=== PATIENT | female | born 1940 | race Caucasian/White ===

== ENCOUNTER → 2021-04-24 | Outpatient (CLI) | payer MEDICARE, OTHER ==
--- NOTE | 2021-04-24 16:18 | CT ---
EXAMINATION TYPE: CT chest wo con DATE OF EXAM: 04/24/2021 COMPARISON: None HISTORY: Pre procedural exam CT DLP: 477.30 mGycm, Automated exposure control for dose reduction was used. CONTRAST: Performed injected with 0 mL of Isovue 300. TECHNIQUE: Axial images were obtained at 5 mm thick sections. Reconstructed images are reviewed on [employer] computer in the coronal plane. FINDINGS: Limited evaluation of thyroid. No suspicious lung nodules or focal infiltrates are present. No enlarged mediastinal or hilar adenopathy is evident. The ascending aorta diameter at the level o f the main pulmonary artery is 3.3 cm. The main pulmonary artery diameter at the bifurcation is 3.0 cm. Coronary artery calcifications present. Small pericardial effusion is present. Small hiatal herni a may be present. Limited CT sections are obtained through the upper abdomen. Abdomen is essentially unremarkable. IMPRESSIONS: 1. Small pericardial effusion. 2. Small hiatal hernia
== END | disposition home or self-care (01) ==
LOC: RADCTMAIN 14:14
PROVIDERS: ATTEND Family Medicine
DX: Z01.818 Encounter for other preprocedural examination (principal); I31.3 Pericardial effusion (noninflammatory); K44.9 Diaphragmatic hernia without obstruction or gangrene
CPT/HCPCS: 71250

== ENCOUNTER 2021-06-05 21:51 | Emergency (ER) | payer MEDICARE, OTHER ==
[2021-06-05 22:45] VITALS: RESP 20
[2021-06-05] MEDS ORDERED: SODIUM CHLORIDE 0.9% 1,000 ML IV STA (22:50)
[2021-06-05] MEDS ORDERED: ACETAMINOPHEN TAB 500 MG TAB PO STA (22:50)
--- NOTE | 2021-06-05 23:09 | ED ---
General Adult HPI - General Chief complaint: Upper Respiratory Infection Stated complaint: covid+ Time Seen by Provider: 06/05/21 22:01 Source: patient, EMS, RN notes reviewed Mode of arrival: EMS Limitations: no limitations - History of Present Illness Initial comments: 81-year-old female with a past medical history of atrial fibrillation, hyperlipidemia, hypertension presents to the emergency room for COVID-19. Patient started to get sick today. She had a cough and fever. Patient lives in an assisted living facility. She tested positive at home. Patient denies shortness of breath. Denies any chest pain.Patient has no other complaints at this time including shortness of breath, chest pain, abdominal pain, nausea or vomiting, headache, or visual changes. - Related Data Home Medications Medication Instructions Recorded Confirmed Acetaminophen [Tylenol 8 Hour] 650 mg PO DAILY 06/05/21 06/05/21 Acetaminophen [Tylenol Extra 1,000 mg PO HS 06/05/21 06/05/21 Strength] Acetaminophen [Tylenol Extra 1,000 mg PO Q4-6H PRN 06/05/21 06/05/21 Strength] Aspirin EC [Ecotrin Low Dose] 81 mg PO DAILY 06/05/21 06/05/21 Atorvastatin [Lipitor] 40 mg PO HS 06/05/21 06/05/21 Calcium Carbonate/Vitamin D3 1 tab PO DAILY 06/05/21 06/05/21 [Calcium 600 mg-D3 10 Mcg (400 Iu)] Carvedilol [Coreg] 12.5 mg PO BID 06/05/21 06/05/21 Furosemide [Lasix] 40 mg PO DAILY 06/05/21 06/05/21 Ketoconazole 2% Shampoo [Nizoral] 1 applic TOPICAL DAILY PRN 06/05/21 06/05/21 Lidocaine [Aspercreme Patch] 1 patch TRANSDERM HS 06/05/21 06/05/21 Loperamide [Imodium] 2 - 4 mg PO QID PRN 06/05/21 06/05/21 Losartan Potassium [Cozaar] 100 mg PO DAILY 06/05/21 06/05/21 Menthol [Biofreeze] 1 applic TOPICAL HS 06/05/21 06/05/21 Menthol [Biofreeze] 1 applic TOPICAL TID PRN 06/05/21 06/05/21 Multivitamins, Thera [Multivitamin 1 tab PO DAILY 06/05/21 06/05/21 (formulary)] Oxybutynin Chloride 5 mg PO HS 06/05/21 06/05/21 Phenyleph/Mineral Oil/Petrolat 1 applic RECTAL QID PRN 06/05/21 06/05/21 [Preparation H Ointment] Sennosides/Docusate Sodium [Senna 2 tab PO HS 06/05/21 06/05/21 Plus 8.6-50 mg Softgel] amLODIPine [Norvasc] 10 mg PO DAILY 06/05/21 06/05/21 polyethylene glycoL 3350 [Miralax] 17 gm PO DAILY PRN 06/05/21 06/05/21 Allergies Allergy/AdvReac Type Severity Reaction Status Date / Time No Known Allergies Allergy Verified 06/05/21 23:31 Review of Systems ROS Statement: Those systems with pertinent positive or pertinent negative responses have been documented in the HPI. ROS Other: All systems not noted in ROS Statement are negative. Past Medical History Past Medical History: Atrial Fibrillation, Hyperlipidemia, Hypertension History of Any Multi-Drug Resistant Organisms: None Reported Past Surgical History: Pacemaker Additional Past Surgical History / Comment(s): orthopedic surgery on Right ankle and left wrist Past Psychological History: No Psychological Hx Reported Smoking Status: Never smoker Past Alcohol Use History: None Reported Past Drug Use History: None Reported General Exam Limitations: no limitations General appearance: alert, in no apparent distress Head exam: Present: atraumatic Eye exam: Present: normal appearance, PERRL, EOMI. Absent: scleral icterus, conjunctival injection ENT exam: Present: normal exam, mucous membranes moist Neck exam: Present: normal inspection, full ROM. Absent: tenderness Respiratory exam: Present: normal lung sounds bilaterally. Absent: respiratory distress, wheezes Cardiovascular Exam: Present: regular rate, normal rhythm, normal heart sounds GI/Abdominal exam: Present: soft, normal bowel sounds. Absent: distended, tenderness Course Vital Signs 06/05/21 06/05/21 22:31 23:01 Temperature 100.3 F H Pulse Rate 69 Respiratory 20 20 Rate Blood Pressure 123/83 O2 Sat by Pulse 93 L Oximetry EKG Findings - EKG Comments: EKG Findings:: Accelerated junctional rhythm, ventricular rate 68, QRS duration 88, QTc 382 Medical Decision Making - Medical Decision Making vitals are stable. Patient is well appearing. Patient's oxygen is 93-95% on room air. No respiratory distress. CBC CMP unremarkable. Minimal hypokalemia, patient given oral potassium. Chest x-ray shows no acute process. At this time patient does not need to be admitted for COVID-19. We will give her antibody infusion in discharge her home to follow up with her doctor. She will return here for any worsening symptoms. - Lab Data Result diagrams: 06/05/21 23:43 06/05/21 23:43 Lab Results 06/05/21 06/05/21 06/05/21 Range/Units 23:43 23:43 23:43 WBC 7.6 (3.8-10.6) k/uL RBC 3.69 L (3.80-5.40) m/uL Hgb 11.7 (11.4-16.0) gm/dL Hct 35.3 (34.0-46.0) % MCV 95.6 (80.0-100.0) fL MCH 31.8 (25.0-35.0) pg MCHC 33.3 (31.0-37.0) g/dL RDW 13.5 (11.5-15.5) % Plt Count 175 (150-450) k/uL MPV 7.8 Neutrophils % 68 % Lymphocytes % 21 % Monocytes % 8 % Eosinophils % 1 % Basophils % 0 % Neutrophils # 5.1 (1.3-7.7) k/uL Lymphocytes # 1.6 (1.0-4.8) k/uL Monocytes # 0.6 (0-1.0) k/uL Eosinophils # 0.0 (0-0.7) k/uL Basophils # 0.0 (0-0.2) k/uL Sodium 140 (137-145) mmol/L Potassium 3.2 L (3.5-5.1) mmol/L Chloride 105 (98-107) mmol/L Carbon Dioxide 26 (22-30) mmol/L Anion Gap 9 mmol/L BUN 19 H (7-17) mg/dL Creatinine 0.90 (0.52-1.04) mg/dL Est GFR (CKD-EPI)AfAm 70 (>60 ml/min/1.73 sqM) Est GFR (CKD-EPI)NonAf 60 (>60 ml/min/1.73 sqM) Glucose 125 H (74-99) mg/dL Calcium 8.9 (8.4-10.2) mg/dL Total Bilirubin 0.7 (0.2-1.3) mg/dL AST 23 (14-36) U/L ALT 18 (4-34) U/L Alkaline Phosphatase 59 (38-126) U/L Total Protein 6.4 (6.3-8.2) g/dL Albumin 3.7 (3.5-5.0) g/dL Coronavirus (PCR) Detected A (Not Detectd) Disposition Clinical Impression: COVID-19 Disposition: HOME SELF-CARE Condition: Good Instructions (If sedation given, give patient instructions): Coronavirus Disease 2019 (COVID-19) Additional Instructions: Take vitamin C, D, and zinc [id number]. Take Motrin and Tylenol for fever. Drink plenty of fluids. Follow-up with her doctor. Return to the emergency room for any worsening symptoms. Is patient prescribed a controlled substance at d/c from ED?: No Referrals: Francisco Lawrence MD [Primary Care Provider] - 1-2 days Time of Disposition: 01:31
--- NOTE | 2021-06-05 23:28 | XR ---
EXAMINATION TYPE: XR chest 2V DATE OF EXAM: 06/05/2021 COMPARISON: NONE HISTORY: Cough TECHNIQUE: 2 views FINDINGS: Heart appears enlarged. There is no heart failure. There is left axillary pacemaker. Lungs are clear of consolidation. There is no pleural effusion. Thoracic aorta is atheromatous. IMPRESSION: No active cardiopulmonary disease. Cardiomegaly.
[2021-06-06 00:39] LABS: Basophils % (A) 0 %; Eosinophils % (A) 1 %; HCT 35.3 % (34.0-46.0); HGB 11.7 gm/dL (11.4-16.0); Lymphocytes # (A) 1.6 k/uL (1.0-4.8); Lymphocytes % (A) 21 %; MCH 31.8 pg (25.0-35.0); MCHC 33.3 g/dL (31.0-37.0); MCV 95.6 fL (80.0-100.0); Mean Platelet Volume 7.8; Monocytes # (A) 0.6 k/uL (0-1.0); Monocytes % (A) 8 %; Neutrophils # (A) 5.1 k/uL (1.3-7.7); Neutrophils % (A) 68 %; Platelet Count 175 k/uL (150-450); RBC 3.69 m/uL (3.80-5.40); RDW 13.5 % (11.5-15.5); WBC 7.6 k/uL (3.8-10.6)
[2021-06-06 01:02] LABS: Albumin 3.7 g/dL (3.5-5.0); Calcium 8.9 mg/dL (8.4-10.2); Potassium 3.2 mmol/L (3.5-5.1); Total Bilirubin 0.7 mg/dL (0.2-1.3); Total Protein 6.4 g/dL (6.3-8.2)
[2021-06-06] MEDS ORDERED: POTASSIUM CHLORIDE ER 20 MEQ TAB.ER PO STA (01:30)
[2021-06-06] MEDS ORDERED: SODIUM CHLORIDE 0.9% 50 ML IVPB ONE (01:45)
[2021-06-06] MEDS ORDERED: BAMLANIVIMAB (EUA) 700 MG, ETESEVIMAB (EUA) 1,400 MG in SODIUM CHLORIDE 0.9% 100 ML IVPB ONE (01:45)
[2021-06-06 02:56] VITALS: BP 131/57; PULSE 60; TEMP 98.8
== END 2021-06-06 06:11 | disposition home or self-care (01) ==
LOC: EC 21:51
DX: U07.1 COVID-19 (principal); I10 Essential (primary) hypertension; I48.91 Unspecified atrial fibrillation; E78.5 Hyperlipidemia, unspecified; Z79.82 Long term (current) use of aspirin; Z79.899 Other long term (current) drug therapy
CPT/HCPCS: 36415; 93005; 80053; 85025; 87635; 71046; 99284; 96360; J3490

== ENCOUNTER 2021-09-03 08:30 | Inpatient (IN) | payer OTHER ==
[2021-09-03] MEDS ORDERED: ACETAMINOPHEN TAB 325 MG TAB PO STA (08:49)
--- NOTE | 2021-09-03 08:52 | ED ---
General Adult HPI - General Chief complaint: Chest Pain Stated complaint: cough/fever Time Seen by Provider: 09/03/21 08:41 Source: patient, EMS, RN notes reviewed Mode of arrival: EMS Limitations: no limitations - History of Present Illness Initial comments: Patient is a pleasant 81-year-old female presenting to the emergency department feeling well. Onset of symptoms was just the past day. Patient is somewhat a poor historian. Patient does feel feverish and chilled and has fatigue. Patient originally denies cough however later states she has some. Patient denies chest discomfort however stated to nursing earlier that she did have some. No leg pain or swelling. No abdominal pain or dysuria. - Related Data Home Medications Medication Instructions Recorded Confirmed Acetaminophen [Tylenol 8 Hour] 650 mg PO DAILY 06/05/21 09/03/21 Acetaminophen [Tylenol Extra 1,000 mg PO HS 06/05/21 09/03/21 Strength] Acetaminophen [Tylenol Extra 1,000 mg PO Q4-6H PRN MDD 4000mg 06/05/21 09/03/21 Strength] Atorvastatin [Lipitor] 40 mg PO HS 06/05/21 09/03/21 Carvedilol [Coreg] 12.5 mg PO BID 06/05/21 09/03/21 Furosemide [Lasix] 40 mg PO DAILY 06/05/21 09/03/21 Ketoconazole 2% Shampoo [Nizoral] 1 applic TOPICAL DAILY PRN 06/05/21 09/03/21 Loperamide [Imodium] 2 - 4 mg PO QID PRN MDD 16mg 06/05/21 09/03/21 Losartan Potassium [Cozaar] 100 mg PO DAILY 06/05/21 09/03/21 Menthol [Biofreeze] 1 applic TOPICAL HS 06/05/21 09/03/21 Menthol [Biofreeze] 1 applic TOPICAL TID PRN 06/05/21 09/03/21 Multivitamins, Thera [Multivitamin 1 tab PO DAILY 06/05/21 09/03/21 (formulary)] Oxybutynin Chloride 5 mg PO HS 06/05/21 09/03/21 Phenyleph/Mineral Oil/Petrolat 1 applic RECTAL QID PRN 06/05/21 09/03/21 [Preparation H Ointment] amLODIPine [Norvasc] 10 mg PO DAILY 06/05/21 09/03/21 polyethylene glycoL 3350 [Miralax] 17 gm PO DAILY PRN 06/05/21 09/03/21 Calcium Citrate/Vitamin D3 1 tab PO DAILY 09/03/21 09/03/21 [Citracal + D Maximum [place]] Cholecalciferol [Vitamin D3 (25 50 mcg PO HS 09/03/21 09/03/21 Mcg = 1000 Iu)] Meclizine [Antivert] 12.5 mg PO BID PRN 09/03/21 09/03/21 Ondansetron [Zofran] 4 mg PO Q8H PRN 09/03/21 09/03/21 Potassium Chloride ER [K-Dur 10] 10 meq PO TID@0600,1200,1700 09/03/21 09/03/21 Rivaroxaban [Xarelto] 20 mg PO W/SUPPER@1700 09/03/21 09/03/21 Salonpas 4% Patch 1 patch TRANSDERM BID 09/03/21 09/03/21 Sennosides/Docusate Sodium [Senna 2 tab PO HS 09/03/21 09/03/21 Plus 8.6-50 mg Tablet] Allergies Allergy/AdvReac Type Severity Reaction Status Date / Time No Known Allergies Allergy Verified 09/03/21 10:36 Review of Systems ROS Statement: Those systems with pertinent positive or pertinent negative responses have been documented in the HPI. ROS Other: All systems not noted in ROS Statement are negative. Constitutional: Reports: as per HPI, fever, chills Eyes: Denies: eye pain ENT: Denies: throat pain Respiratory: Reports: as per HPI, cough Cardiovascular: Reports: as per HPI Endocrine: Reports: fatigue Gastrointestinal: Denies: abdominal pain Genitourinary: Denies: dysuria Musculoskeletal: Denies: back pain Skin: Denies: rash Neurological: Denies: weakness Past Medical History Past Medical History: Atrial Fibrillation, Hyperlipidemia, Hypertension History of Any Multi-Drug Resistant Organisms: None Reported Past Surgical History: Pacemaker Additional Past Surgical History / Comment(s): orthopedic surgery on Right ankle and left wrist Past Psychological History: No Psychological Hx Reported Smoking Status: Never smoker Past Alcohol Use History: None Reported Past Drug Use History: None Reported General Exam Limitations: no limitations General appearance: alert, in no apparent distress Head exam: Present: normocephalic Eye exam: Present: normal appearance Neck exam: Present: normal inspection. Absent: meningismus Respiratory exam: Present: normal lung sounds bilaterally Cardiovascular Exam: Present: regular rate, normal rhythm, normal heart sounds GI/Abdominal exam: Present: soft. Absent: tenderness Extremities exam: Present: normal inspection. Absent: pedal edema, calf tenderness Neurological exam: Present: alert Psychiatric exam: Present: normal affect, normal mood Skin exam: Present: normal color Course Vital Signs 09/03/21 09/03/21 08:31 11:52 Temperature 99.9 F H 99.3 F Pulse Rate 72 64 Respiratory 18 18 Rate Blood Pressure 142/94 163/63 O2 Sat by Pulse 95 97 Oximetry EKG Findings - EKG Comments: EKG Findings:: Sinus rhythm rate 69. [place] 172. QRS 105. QT 361. QTC 380. Normal axis. Normal QRS. Lateral T wave inversion. Medical Decision Making - Medical Decision Making Patient reevaluated and resting comfortably in bed. Patient unable to get up and walk to the bathroom on her own. Source of infection identified at this time however suspicion secondary to increase in temperature. Case discussed with Dr. raven crockett, who will admit covering hospital observation call. - Lab Data Result diagrams: 09/03/21 08:52 09/03/21 08:52 Lab Results 09/03/21 09/03/21 09/03/21 Range/Units 08:52 08:52 08:52 WBC 8.6 (3.8-10.6) k/uL RBC 3.82 (3.80-5.40) m/uL Hgb 11.9 (11.4-16.0) gm/dL Hct 36.3 (34.0-46.0) % MCV 95.1 (80.0-100.0) fL MCH 31.2 (25.0-35.0) pg MCHC 32.8 (31.0-37.0) g/dL RDW 14.1 (11.5-15.5) % Plt Count 181 (150-450) k/uL MPV 7.6 Neutrophils % 81 % Lymphocytes % 12 % Monocytes % 4 % Eosinophils % 1 % Basophils % 0 % Neutrophils # 7.0 (1.3-7.7) k/uL Lymphocytes # 1.1 (1.0-4.8) k/uL Monocytes # 0.4 (0-1.0) k/uL Eosinophils # 0.1 (0-0.7) k/uL Basophils # 0.0 (0-0.2) k/uL PT 12.3 H (9.0-12.0) sec INR 1.2 H (<1.2) APTT 31.5 H (22.0-30.0) sec Sodium 138 (137-145) mmol/L Potassium 4.4 (3.5-5.1) mmol/L Chloride 107 (98-107) mmol/L Carbon Dioxide 21 L (22-30) mmol/L Anion Gap 10 mmol/L BUN 22 H (7-17) mg/dL Creatinine 0.85 (0.52-1.04) mg/dL Est GFR (CKD-EPI)AfAm 75 (>60 ml/min/1.73 sqM) Est GFR (CKD-EPI)NonAf 65 (>60 ml/min/1.73 sqM) Glucose 144 H (74-99) mg/dL Lactic Ac Sepsis Rflx Plasma Lactic Acid Miller (0.7-2.0) mmol/L Calcium 8.9 (8.4-10.2) mg/dL Total Bilirubin 0.9 (0.2-1.3) mg/dL AST 21 (14-36) U/L ALT 17 (4-34) U/L Alkaline Phosphatase 52 (38-126) U/L Troponin I (0.000-0.034) ng/mL NT-Pro-B Natriuret Pep pg/mL Total Protein 7.1 (6.3-8.2) g/dL Albumin 4.0 (3.5-5.0) g/dL Urine Color Urine Appearance (Clear) Urine pH (5.0-8.0) Ur Specific [place] (1.001-1.035) Urine Protein (Negative) Urine Glucose (UA) (Negative) Urine Ketones (Negative) Urine Blood (Negative) Urine Nitrite (Negative) Urine Bilirubin (Negative) Urine Urobilinogen (<2.0) mg/dL Ur Leukocyte Esterase (Negative) Urine RBC (0-5) /hpf Urine WBC (0-5) /hpf Hyaline Casts (0-2) /lpf Urine Mucus (None) /hpf Coronavirus (PCR) (Not Detectd) Influenza Type A RNA (Not Detectd) Influenza Type B (PCR) (Not Detectd) 09/03/21 09/03/21 09/03/21 Range/Units 08:52 08:52 08:52 WBC (3.8-10.6) k/uL RBC (3.80-5.40) m/uL Hgb (11.4-16.0) gm/dL Hct (34.0-46.0) % MCV (80.0-100.0) fL MCH (25.0-35.0) pg MCHC (31.0-37.0) g/dL RDW (11.5-15.5) % Plt Count (150-450) k/uL MPV Neutrophils % % Lymphocytes % % Monocytes % % Eosinophils % % Basophils % % Neutrophils # (1.3-7.7) k/uL Lymphocytes # (1.0-4.8) k/uL Monocytes # (0-1.0) k/uL Eosinophils # (0-0.7) k/uL Basophils # (0-0.2) k/uL PT (9.0-12.0) sec INR (<1.2) APTT (22.0-30.0) sec Sodium (137-145) mmol/L Potassium (3.5-5.1) mmol/L Chloride (98-107) mmol/L Carbon Dioxide (22-30) mmol/L Anion Gap mmol/L BUN (7-17) mg/dL Creatinine (0.52-1.04) mg/dL Est GFR (CKD-EPI)AfAm (>60 ml/min/1.73 sqM) Est GFR (CKD-EPI)NonAf (>60 ml/min/1.73 sqM) Glucose (74-99) mg/dL Lactic Ac Sepsis Rflx Plasma Lactic Acid Miller 2.2 H* (0.7-2.0) mmol/L Calcium (8.4-10.2) mg/dL Total Bilirubin (0.2-1.3) mg/dL AST (14-36) U/L ALT (4-34) U/L Alkaline Phosphatase (38-126) U/L Troponin I <0.012 (0.000-0.034) ng/mL NT-Pro-B Natriuret Pep 149 pg/mL Total Protein (6.3-8.2) g/dL Albumin (3.5-5.0) g/dL Urine Color Urine Appearance (Clear) Urine pH (5.0-8.0) Ur Specific [place] (1.001-1.035) Urine Protein (Negative) Urine Glucose (UA) (Negative) Urine Ketones (Negative) Urine Blood (Negative) Urine Nitrite (Negative) Urine Bilirubin (Negative) Urine Urobilinogen (<2.0) mg/dL Ur Leukocyte Esterase (Negative) Urine RBC (0-5) /hpf Urine WBC (0-5) /hpf Hyaline Casts (0-2) /lpf Urine Mucus (None) /hpf Coronavirus (PCR) (Not Detectd) Influenza Type A RNA (Not Detectd) Influenza Type B (PCR) (Not Detectd) 09/03/21 09/03/21 09/03/21 Range/Units 09:06 09:06 09:30 WBC (3.8-10.6) k/uL RBC (3.80-5.40) m/uL Hgb (11.4-16.0) gm/dL Hct (34.0-46.0) % MCV (80.0-100.0) fL MCH (25.0-35.0) pg MCHC (31.0-37.0) g/dL RDW (11.5-15.5) % Plt Count (150-450) k/uL MPV Neutrophils % % Lymphocytes % % Monocytes % % Eosinophils % % Basophils % % Neutrophils # (1.3-7.7) k/uL Lymphocytes # (1.0-4.8) k/uL Monocytes # (0-1.0) k/uL Eosinophils # (0-0.7) k/uL Basophils # (0-0.2) k/uL PT (9.0-12.0) sec INR (<1.2) APTT (22.0-30.0) sec Sodium (137-145) mmol/L Potassium (3.5-5.1) mmol/L Chloride (98-107) mmol/L Carbon Dioxide (22-30) mmol/L Anion Gap mmol/L BUN (7-17) mg/dL Creatinine (0.52-1.04) mg/dL Est GFR (CKD-EPI)AfAm (>60 ml/min/1.73 sqM) Est GFR (CKD-EPI)NonAf (>60 ml/min/1.73 sqM) Glucose (74-99) mg/dL Lactic Ac Sepsis Rflx Y Plasma Lactic Acid Miller (0.7-2.0) mmol/L Calcium (8.4-10.2) mg/dL Total Bilirubin (0.2-1.3) mg/dL AST (14-36) U/L ALT (4-34) U/L Alkaline Phosphatase (38-126) U/L Troponin I (0.000-0.034) ng/mL NT-Pro-B Natriuret Pep pg/mL Total Protein (6.3-8.2) g/dL Albumin (3.5-5.0) g/dL Urine Color Urine Appearance (Clear) Urine pH (5.0-8.0) Ur Specific [place] (1.001-1.035) Urine Protein (Negative) Urine Glucose (UA) (Negative) Urine Ketones (Negative) Urine Blood (Negative) Urine Nitrite (Negative) Urine Bilirubin (Negative) Urine Urobilinogen (<2.0) mg/dL Ur Leukocyte Esterase (Negative) Urine RBC (0-5) /hpf Urine WBC (0-5) /hpf Hyaline Casts (0-2) /lpf Urine Mucus (None) /hpf Coronavirus (PCR) Not Detected (Not Detectd) Influenza Type A RNA Not Detected (Not Detectd) Influenza Type B (PCR) Not Detected (Not Detectd) 09/03/21 09/03/21 Range/Units 11:19 12:09 WBC (3.8-10.6) k/uL RBC (3.80-5.40) m/uL Hgb (11.4-16.0) gm/dL Hct (34.0-46.0) % MCV (80.0-100.0) fL MCH (25.0-35.0) pg MCHC (31.0-37.0) g/dL RDW (11.5-15.5) % Plt Count (150-450) k/uL MPV Neutrophils % % Lymphocytes % % Monocytes % % Eosinophils % % Basophils % % Neutrophils # (1.3-7.7) k/uL Lymphocytes # (1.0-4.8) k/uL Monocytes # (0-1.0) k/uL Eosinophils # (0-0.7) k/uL Basophils # (0-0.2) k/uL PT (9.0-12.0) sec INR (<1.2) APTT (22.0-30.0) sec Sodium (137-145) mmol/L Potassium (3.5-5.1) mmol/L Chloride (98-107) mmol/L Carbon Dioxide (22-30) mmol/L Anion Gap mmol/L BUN (7-17) mg/dL Creatinine (0.52-1.04) mg/dL Est GFR (CKD-EPI)AfAm (>60 ml/min/1.73 sqM) Est GFR (CKD-EPI)NonAf (>60 ml/min/1.73 sqM) Glucose (74-99) mg/dL Lactic Ac Sepsis Rflx Plasma Lactic Acid Miller 1.5 (0.7-2.0) mmol/L Calcium (8.4-10.2) mg/dL Total Bilirubin (0.2-1.3) mg/dL AST (14-36) U/L ALT (4-34) U/L Alkaline Phosphatase (38-126) U/L Troponin I (0.000-0.034) ng/mL NT-Pro-B Natriuret Pep pg/mL Total Protein (6.3-8.2) g/dL Albumin (3.5-5.0) g/dL Urine Color Yellow Urine Appearance Clear (Clear) Urine pH 5.0 (5.0-8.0) Ur Specific [place] 1.012 (1.001-1.035) Urine Protein Negative (Negative) Urine Glucose (UA) Negative (Negative) Urine Ketones Negative (Negative) Urine Blood Small H (Negative) Urine Nitrite Negative (Negative) Urine Bilirubin Negative (Negative) Urine Urobilinogen <2.0 (<2.0) mg/dL Ur Leukocyte Esterase Negative (Negative) Urine RBC 2 (0-5) /hpf Urine WBC 1 (0-5) /hpf Hyaline Casts 4 H (0-2) /lpf Urine Mucus Rare H (None) /hpf Coronavirus (PCR) (Not Detectd) Influenza Type A RNA (Not Detectd) Influenza Type B (PCR) (Not Detectd) - Radiology Data Radiology results: image reviewed (Chest x-ray shows slightly congested lungs) Disposition Clinical Impression: Chest pain, General weakness Disposition: ADMITTED IP TO THIS HOSP Is patient prescribed a controlled substance at d/c from ED?: No Referrals: Francisco Lawrence MD [Primary Care Provider] - 1-2 days Time of Disposition: 13:21
[2021-09-03] MEDS: SODIUM CHLORIDE 0.9% 1,000 ML IV SCH ×2 (09:04→19:09)
[2021-09-03 09:06] LABS: Basophils % (A) 0 %; Eosinophils # (A) 0.1 k/uL (0-0.7); Eosinophils % (A) 1 %; HCT 36.3 % (34.0-46.0); HGB 11.9 gm/dL (11.4-16.0); Lymphocytes # (A) 1.1 k/uL (1.0-4.8); Lymphocytes % (A) 12 %; MCH 31.2 pg (25.0-35.0); MCHC 32.8 g/dL (31.0-37.0); MCV 95.1 fL (80.0-100.0); Mean Platelet Volume 7.6; Monocytes # (A) 0.4 k/uL (0-1.0); Monocytes % (A) 4 %; Neutrophils % (A) 81 %; Platelet Count 181 k/uL (150-450); RBC 3.82 m/uL (3.80-5.40); RDW 14.1 % (11.5-15.5); WBC 8.6 k/uL (3.8-10.6)
[2021-09-03 09:13] LABS: INR 1.2 (<1.2); Partial Thromboplastin Time 31.5 sec (22.0-30.0); Prothrombin Time 12.3 sec (9.0-12.0)
[2021-09-03 09:29] LABS: Calcium 8.9 mg/dL (8.4-10.2); Potassium 4.4 mmol/L (3.5-5.1); Total Bilirubin 0.9 mg/dL (0.2-1.3); Total Protein 7.1 g/dL (6.3-8.2)
--- NOTE | 2021-09-03 09:30 | XR ---
EXAMINATION TYPE: XR chest 2V DATE OF EXAM: 09/03/2021 COMPARISON: X-ray dated 06/05/2021 HISTORY: Fever, cough/congestion TECHNIQUE: Frontal and lateral views of the chest are obtained. FINDINGS: Slightly congested pulmonary vasculature. Grossly unremarkable lungs otherwise. No sizable pleural ef fusion or definite pneumothorax. Slightly increased cardiac transverse diameter. Aortic atherosclerotic calcifications. Left chest wal l dual-lead pacemaker. Degenerative changes of the thoracic spine. IMPRESSION: Slightly congested pulmonary vasculature, otherwise grossly unremarkable lungs.
[2021-09-03 11:53] LABS: Appearance,Urine Clear (Clear); Bilirubin,Urine Negative (Negative); Blood,Urine Small (Negative); Color,Urine Yellow; Glucose,Urine (UA) Negative (Negative); Hyaline Casts,Urine 4 /lpf (0-2); Ketones,Urine Negative (Negative); Leukocyte Esterase,Urine Negative (Negative); Mucus,Urine Rare /hpf; Nitrite,Urine Negative (Negative); Protein,Urine Negative (Negative); RBC,Urine 2 /hpf (0-5); Specific Gravity,Urine 1.012 (1.001-1.035); Urobilinogen,Urine <2.0 mg/dL (<2.0); WBC,Urine 1 /hpf (0-5)
[2021-09-03] MEDS ORDERED: ACETAMINOPHEN TAB 325 MG TAB PO PRN (13:21)
[2021-09-03] MEDS ORDERED: NALOXONE 0.4 MG/ML 1 ML VIAL IV PRN (13:21)
[2021-09-03] MEDS ORDERED: NON FORMULARY DRUG (Acetaminophen [Tylenol Extra Strength] 500 MG Packet) PO PRN (15:39)
[2021-09-03] MEDS ORDERED: MECLIZINE 12.5 MG TAB PO PRN (15:39)
--- NOTE | 2021-09-03 15:43 | P.HPIM ---
History of Present Illness Chief Complaint: Chest pain Patient is a 81-year-old female with a past medical history significant for atrial fibrillation on regulation, essential hypertension, hyperlipidemia that presents to the hospital complaining of generalized weakness/tiredness. While she was in the emergency room she also started to complain of chest pain. The chest pain is substernal does not radiate to the left arm or jaw, rates it a 4 out of 10 nothing alleviates the chest pain and it comes and goes. Patient states that she did have a fever of 101 with subjective chills. She denies any episodes of abdominal discomfort, shortness of breath, phlegm production. In the emergency department patient is afebrile, blood pressure 163/63, CBC reviewed no leukocytosis, lactic acid was found to be elevated at 2. 2 repeat 1.5, BUN and creatinine stable. Cardiac troponin was completed which was negative 1. EKG was also reviewed which shows sinus rhythm. Cariology was consulted from the emergency department. Past Medical History Past Medical History: Atrial Fibrillation, Hyperlipidemia, Hypertension History of Any Multi-Drug Resistant Organisms: None Reported Past Surgical History: Pacemaker Additional Past Surgical History / Comment(s): orthopedic surgery on Right ankle and left wrist Past Psychological History: No Psychological Hx Reported Smoking Status: Never smoker Past Alcohol Use History: None Reported Past Drug Use History: None Reported Medications and Allergies Home Medications Medication Instructions Recorded Confirmed Type Acetaminophen [Tylenol 8 Hour] 650 mg PO DAILY 06/05/21 09/03/21 History Acetaminophen [Tylenol Extra 1,000 mg PO HS 06/05/21 09/03/21 History Strength] Acetaminophen [Tylenol Extra 1,000 mg PO Q4-6H PRN MDD 4000mg 06/05/21 09/03/21 History Strength] Atorvastatin [Lipitor] 40 mg PO HS 06/05/21 09/03/21 History Carvedilol [Coreg] 12.5 mg PO BID 06/05/21 09/03/21 History Furosemide [Lasix] 40 mg PO DAILY 06/05/21 09/03/21 History Ketoconazole 2% Shampoo [Nizoral] 1 applic TOPICAL DAILY PRN 06/05/21 09/03/21 History Loperamide [Imodium] 2 - 4 mg PO QID PRN MDD 16mg 06/05/21 09/03/21 History Losartan Potassium [Cozaar] 100 mg PO DAILY 06/05/21 09/03/21 History Menthol [Biofreeze] 1 applic TOPICAL HS 06/05/21 09/03/21 History Menthol [Biofreeze] 1 applic TOPICAL TID PRN 06/05/21 09/03/21 History Multivitamins, Thera [Multivitamin 1 tab PO DAILY 06/05/21 09/03/21 History (formulary)] Oxybutynin Chloride 5 mg PO HS 06/05/21 09/03/21 History Phenyleph/Mineral Oil/Petrolat 1 applic RECTAL QID PRN 06/05/21 09/03/21 History [Preparation H Ointment] amLODIPine [Norvasc] 10 mg PO DAILY 06/05/21 09/03/21 History polyethylene glycoL 3350 [Miralax] 17 gm PO DAILY PRN 06/05/21 09/03/21 History Calcium Citrate/Vitamin D3 1 tab PO DAILY 09/03/21 09/03/21 History [Citracal + D Maximum Caplet] Cholecalciferol [Vitamin D3 (25 50 mcg PO HS 09/03/21 09/03/21 History Mcg = 1000 Iu)] Meclizine [Antivert] 12.5 mg PO BID PRN 09/03/21 09/03/21 History Ondansetron [Zofran] 4 mg PO Q8H PRN 09/03/21 09/03/21 History Potassium Chloride ER [K-Dur 10] 10 meq PO TID@0600,1200,1700 09/03/21 09/03/21 History Rivaroxaban [Xarelto] 20 mg PO W/SUPPER@1700 09/03/21 09/03/21 History Salonpas 4% Patch 1 patch TRANSDERM BID 09/03/21 09/03/21 History Sennosides/Docusate Sodium [Senna 2 tab PO HS 09/03/21 09/03/21 History Plus 8.6-50 mg Tablet] Allergies Allergy/AdvReac Type Severity Reaction Status Date / Time No Known Allergies Allergy Verified 09/03/21 10:36 Physical Exam Vitals: Vital Signs Temp Pulse Resp BP Pulse Ox 09/03/21 11:52 99.3 F 64 18 163/63 97 09/03/21 08:31 99.9 F H 72 18 142/94 95 Intake and Output 09/03/21 09/03/21 09/03/21 06:59 14:59 22:59 Other: Weight 78.471 kg Gen. patient is awake alert oriented 2 Respiratory no wheezing or rhonchi appreciated, bilateral air entry Cardio normal S1/S2 no murmurs appreciated Abdomen soft, nontender Extremities no pitting edema noted Psychiatry patient is a good spirits Results CBC & Chem 7: 09/03/21 08:52 09/03/21 08:52 Labs: Abnormal Lab Results - Last 24 Hours (Table) 09/03/21 09/03/21 09/03/21 Range/Units 08:52 08:52 08:52 PT 12.3 H (9.0-12.0) sec INR 1.2 H (<1.2) APTT 31.5 H (22.0-30.0) sec Carbon Dioxide 21 L (22-30) mmol/L BUN 22 H (7-17) mg/dL Glucose 144 H (74-99) mg/dL Plasma Lactic Acid Miller 2.2 H* (0.7-2.0) mmol/L Urine Blood (Negative) Hyaline Casts (0-2) /lpf Urine Mucus (None) /hpf 09/03/21 Range/Units 11:19 PT (9.0-12.0) sec INR (<1.2) APTT (22.0-30.0) sec Carbon Dioxide (22-30) mmol/L BUN (7-17) mg/dL Glucose (74-99) mg/dL Plasma Lactic Acid Miller (0.7-2.0) mmol/L Urine Blood Small H (Negative) Hyaline Casts 4 H (0-2) /lpf Urine Mucus Rare H (None) /hpf Assessment and Plan Assessment: Assessment: #1 chest pain rule out ACS versus musculoskeletal #2 essential hypertension #3 atrial fibrillation rate controlled on anticoagulation #4 hyperlipidemia Plan: -Admit to medicine for close monitoring under observation -Aspiration/fall precaution -EKG reviewed, cardiac troponin 1 negative, heart score for moderate risk for -Cardiology consult if the emergency department -Urinalysis and chest x-ray reviewed for any infectious etiology -Recommend stopping oxybutynin given patient's age/symptomatology as this can be contributing towards her poly-pharmacy. We'll try to obtain records as to why she is on this. -DVT prophylaxis resume home medication -PT/OT
[2021-09-03] MEDS: RIVAROXABAN 20 MG TAB PO SCH (17:55)
[2021-09-03] MEDS: carvediloL 12.5 MG TAB PO SCH (17:55)
[2021-09-03] MEDS ORDERED: FAMOTIDINE 20 MG TAB PO SCH (21:00)
[2021-09-03] MEDS: ATORVASTATIN 40 MG TAB PO SCH (21:28)
[2021-09-03] MEDS: FAMOTIDINE 20 MG TAB PO SCH (21:28)
[2021-09-04] MEDS: SODIUM CHLORIDE 0.9% 1,000 ML IV SCH ×3 (00:34→15:59)
[2021-09-04] MEDS ORDERED: VANCOMYCIN IV PER PHARMACY 1 EACH MISC MISCELLANE PRN (06:04)
[2021-09-04] MEDS ORDERED: VANCOMYCIN 1,500 MG in SODIUM CHLORIDE 0.9% 250 ML IVPB ONE (06:15)
[2021-09-04] MEDS: carvediloL 12.5 MG TAB PO SCH ×2 (07:52→17:07)
[2021-09-04] MEDS: amLODIPine 10 MG TAB PO SCH (07:52)
[2021-09-04] MEDS: LOSARTAN 50 MG TAB PO SCH (07:52)
[2021-09-04] MEDS: FUROSEMIDE 40 MG TAB PO SCH (07:53)
[2021-09-04 09:13] LABS: Basophils # (A) 0.02 X 10*3/uL (0.00-0.10); Basophils % (A) 0.2 %; Eosinophils # (A) 0.01 X 10*3/uL (0.04-0.35); Eosinophils % (A) 0.1 %; HCT 32.5 % (37.2-46.3); Immature Grans, Automated 0.3 %; Lymphocytes # (A) 2.43 X 10*3/uL (0.90-5.00); Lymphocytes % (A) 20.9 %; MCH 30.7 pg (27.0-32.0); MCHC 30.8 g/dL (32.0-37.0); MCV 99.7 fL (80.0-97.0); Mean Platelet Volume 10.8 fL (9.5-12.2); Monocytes # (A) 0.89 X 10*3/uL (0.20-1.00); Monocytes % (A) 7.7 %; NRBC Per 100 WBC 0 /100 WBCS (0.0-0.0); Neutrophils # (A) 8.22 X 10*3/uL (1.80-7.70); Neutrophils % (A) 70.8 %; Platelet Count 142 X 10*3/uL (140-440); RBC 3.26 X 10*6/uL (4.10-5.20); RDW 14.5 % (11.5-14.5); WBC 11.61 X 10*3/uL (4.50-10.00)
[2021-09-04 09:21] LABS: African American GFR (CKD) 74.7 (60.0-200.0); Albumin 3.7 g/dL (3.8-4.9); Albumin/Globulin Ratio 1.67 (1.60-3.17); Anion Gap 10.3 mmol/L (10.00-18.00); BUN/Creat Ratio 21.46 Ratio (12.00-20.00); Blood Urea Nitrogen 18.2 mg/dL (9.0-27.0); Calcium 8.3 mg/dL (8.7-10.3); Globulin 2.2 g/dL (1.6-3.3); Non-African American GFR(CKD) 64.4 (60.0-200.0); Total Bilirubin 0.9 mg/dL (0.30-1.20); Total Protein 5.9 g/dL (6.2-8.2)
--- NOTE | 2021-09-04 10:01 | P.CRDCN ---
History of Present Illness History of present illness: HISTORY OF PRESENTING ILLNESS This is a pleasant 81-year-old female past medical history significant for hypertension, sick sinus syndrome status post dual chamber pacemaker in 02/2020, stroke with left hemiplegia, hyperlipidemia, paroxysmal atrial fibrillation on Xarelto. She follows in the office with Dr. Rodríguez. We have been asked to see in consultation for chest pain. Patient presents emergency department with complaints of not feeling well. She states that she's been having symptoms of fevers, chills, generalized fatigue for a few days. She states she did have some episodes of chest discomfort at night when she wakes up hot with fever and chills. She states when this resolves her chest discomfort resolves. Her chest discomfort is dull. It is non-radiating. Non-exertional. She denies any associated shortness of breath, nausea, vomiting, lightheadedness, dizziness, syncope or near-syncope. She denies any symptoms of orthopnea, PND, bilateral lower extremity edema. She currently lives in assisted living. She also endorses chronic back pain. No history of ME or coronary artery disease. Former smoker. She had a recent echocardiogram in the office 05/24/2021 which revealed an EF of 60%, mild mitral regurgitation, mild tricuspid regurgitation. DIAGNOSTICS EKG reveals sinus rhythm, heart rate 69, nonspecific T-wave abnormalities. T wave inversions in anterior leads. Prior EKG with similar findings Telemetry tracings indicate maintaining sinus mechanism with heart rate 6070s Chest xray no acute cardiopulmonary process Laboratory reviewed, WBC 11.6, hemoglobin 10, platelets 142, troponin negative 3, lactate 2.2, repeat 1.5, sodium 138, potassium 4.0, BUN 18, serum creatinine 0.8, BNP 149, UA negative, COVID-19 negative, influenza A and B- Current home medications include amlodipine 10 mg daily, Xarelto 20 mg nightly, potassium chloride, meclizine, losartan and 100 mg daily, Lasix 40 mg daily, carvedilol 12.5 mg twice a day, atorvastatin 40 mg nightly REVIEW OF SYSTEMS At the time of my exam: CONSTITUTIONAL:+fever +chills. CARDIOVASCULAR: +chest pain,Denies shortness of breath, orthopnea, PND or palpitations. RESPIRATORY: Denies cough. GASTROINTESTINAL: Denies abdominal pain, diarrhea, constipation, nausea or vomiting. MUSCULOSKELETAL: Back pain NEUROLOGIC: Denies numbness, tingling, headacbe or weakness. ENDOCRINE: + fatigue, Denies weight change, polydipsia or polyurina. GENITOURINARY: Denies burning, hematuria or urgency with micturation. HEMATOLOGIC: Denies history of anemia or bleeding. PHYSICAL EXAMINATION Blood pressure 144/70, heart rate 64,Tmax 99.9 saturations 92% on room air CONSTITUTIONAL: No apparent distress. HEENT: Head is normocephalic. Pupils are equal, round. Sclerae anicteric. Mucous membranes of the mouth are moist. No JVD. No carotid bruit. CHEST EXAMINATION: Lungs are clear to auscultation. No chest wall tenderness is noted on palpation or with deep breathing. HEART EXAMINATION: Regular rate and rhythm. S1, S2 heard. No murmurs, gallops or rub. ABDOMEN: Soft, nontender. Positive bowel sounds. EXTREMITIES: 2+ peripheral pulses, no lower extremity edema and no calf tenderness. NEUROLOGIC EXAMINATION: Patient is awake, alert and oriented x3. ASSESSMENT Symptoms of fever, chills, generalized fatigue. Chest pain, appears non-cardiac in nature, acute coronary syndrome has been ruled out Leukocytosis Lactic acidosis Hypertension Sick sinus syndrome status post dual chamber pacemaker in 02/2020 History of stroke with left hemiplegia Hyperlipidemia Paroxysmal atrial fibrillation on Xarelto PLAN From a cardiology perspective, chest pain appears non-cardiac in etiology. Acute coronary syndrome has been ruled out. No further inpatient testing from a cardiology perspective. Rest of management of symptoms per primary. Continue home cardiac medications. Follow up outpatient with Dr. Rodríguez. Nurse practitioner note has been reviewed by physician. Signing provider agrees with the documented findings, assessment, and plan of care. Past Medical History Past Medical History: Atrial Fibrillation, Hyperlipidemia, Hypertension History of Any Multi-Drug Resistant Organisms: None Reported Past Surgical History: Orthopedic Surgery, Pacemaker Additional Past Surgical History / Comment(s): orthopedic surgery on Right ankle and left wrist Past Anesthesia/Blood Transfusion Reactions: No Reported Reaction Type of Cardiac Device: Unknown Device Placement Date:: 2001 Past Psychological History: No Psychological Hx Reported Smoking Status: Former smoker Past Alcohol Use History: None Reported Past Drug Use History: None Reported Medications and Allergies Home Medications Medication Instructions Recorded Confirmed Type Acetaminophen [Tylenol 8 Hour] 650 mg PO DAILY 06/05/21 09/03/21 History Acetaminophen [Tylenol Extra 1,000 mg PO HS 06/05/21 09/03/21 History Strength] Acetaminophen [Tylenol Extra 1,000 mg PO Q4-6H PRN MDD 4000mg 06/05/21 09/03/21 History Strength] Atorvastatin [Lipitor] 40 mg PO HS 06/05/21 09/03/21 History Carvedilol [Coreg] 12.5 mg PO BID 06/05/21 09/03/21 History Furosemide [Lasix] 40 mg PO DAILY 06/05/21 09/03/21 History Ketoconazole 2% Shampoo [Nizoral] 1 applic TOPICAL DAILY PRN 06/05/21 09/03/21 History Loperamide [Imodium] 2 - 4 mg PO QID PRN MDD 16mg 06/05/21 09/03/21 History Losartan Potassium [Cozaar] 100 mg PO DAILY 06/05/21 09/03/21 History Menthol [Biofreeze] 1 applic TOPICAL HS 06/05/21 09/03/21 History Menthol [Biofreeze] 1 applic TOPICAL TID PRN 06/05/21 09/03/21 History Multivitamins, Thera [Multivitamin 1 tab PO DAILY 06/05/21 09/03/21 History (formulary)] Oxybutynin Chloride 5 mg PO HS 06/05/21 09/03/21 History Phenyleph/Mineral Oil/Petrolat 1 applic RECTAL QID PRN 06/05/21 09/03/21 History [Preparation H Ointment] amLODIPine [Norvasc] 10 mg PO DAILY 06/05/21 09/03/21 History polyethylene glycoL 3350 [Miralax] 17 gm PO DAILY PRN 06/05/21 09/03/21 History Calcium Citrate/Vitamin D3 1 tab PO DAILY 09/03/21 09/03/21 History [Citracal + D Maximum Caplet] Cholecalciferol [Vitamin D3 (25 50 mcg PO HS 09/03/21 09/03/21 History Mcg = 1000 Iu)] Meclizine [Antivert] 12.5 mg PO BID PRN 09/03/21 09/03/21 History Ondansetron [Zofran] 4 mg PO Q8H PRN 09/03/21 09/03/21 History Potassium Chloride ER [K-Dur 10] 10 meq PO TID@0600,1200,1700 09/03/21 09/03/21 History Rivaroxaban [Xarelto] 20 mg PO W/SUPPER@1700 09/03/21 09/03/21 History Salonpas 4% Patch 1 patch TRANSDERM BID 09/03/21 09/03/21 History Sennosides/Docusate Sodium [Senna 2 tab PO HS 09/03/21 09/03/21 History Plus 8.6-50 mg Tablet] Allergies Allergy/AdvReac Type Severity Reaction Status Date / Time No Known Allergies Allergy Verified 09/03/21 10:36 Physical Exam Vitals: Vital Signs Temp Pulse Pulse Resp BP BP Pulse Ox 09/04/21 07:00 98.8 F 64 18 144/70 92 L 09/04/21 02:00 66 09/04/21 01:16 99.0 F 66 16 119/54 93 L 09/03/21 21:27 99.8 F H 69 18 123/61 94 L 09/03/21 19:48 71 18 09/03/21 17:36 68 18 138/100 96 09/03/21 15:00 99.1 F 71 18 143/77 97 09/03/21 11:52 99.3 F 64 18 163/63 97 09/03/21 08:31 99.9 F H 72 18 142/94 95 Intake and Output 09/03/21 09/04/21 09/04/21 22:59 06:59 14:59 Output Total 400 Balance -400 Output: Urine 400 Other: Voiding Method External Catheter # Voids 1 Weight 78.471 kg Results 09/04/21 05:43 09/04/21 05:43 Cardiac Enzymes 09/03/21 09/03/21 09/03/21 Range/Units 08:52 08:52 15:53 AST 21 (14-36) U/L Troponin I <0.012 <0.012 (0.000-0.034) ng/mL 09/03/21 Range/Units 19:09 AST (14-36) U/L Troponin I <0.012 (0.000-0.034) ng/mL Coagulation 09/03/21 Range/Units 08:52 PT 12.3 H (9.0-12.0) sec APTT 31.5 H (22.0-30.0) sec CBC 09/03/21 Range/Units 08:52 WBC 8.6 (3.8-10.6) k/uL RBC 3.82 (3.80-5.40) m/uL Hgb 11.9 (11.4-16.0) gm/dL Hct 36.3 (34.0-46.0) % Plt Count 181 (150-450) k/uL Comprehensive Metabolic Panel 09/03/21 Range/Units 08:52 Sodium 138 (137-145) mmol/L Potassium 4.4 (3.5-5.1) mmol/L Chloride 107 (98-107) mmol/L Carbon Dioxide 21 L (22-30) mmol/L BUN 22 H (7-17) mg/dL Creatinine 0.85 (0.52-1.04) mg/dL Glucose 144 H (74-99) mg/dL Calcium 8.9 (8.4-10.2) mg/dL AST 21 (14-36) U/L ALT 17 (4-34) U/L Alkaline Phosphatase 52 (38-126) U/L Total Protein 7.1 (6.3-8.2) g/dL Albumin 4.0 (3.5-5.0) g/dL Current Medications Generic Name Dose Route Start Last Admin Trade Name Freq PRN Reason Stop Dose Admin Acetaminophen 650 mg 09/03/21 13:21 09/03/21 14:48 Acetaminophen Tab 325 Mg Tab PO 650 mg Q6HR PRN Administration Mild Pain or Fever > 100.5 Amlodipine Besylate 10 mg 09/04/21 09:00 Amlodipine 10 Mg Tab PO DAILY LOU Atorvastatin Calcium 40 mg 09/03/21 21:00 09/03/21 21:28 Atorvastatin 40 Mg Tab PO 40 mg HS LOU Administration Carvedilol 12.5 mg 09/03/21 17:30 09/03/21 17:55 Carvedilol 12.5 Mg Tab PO 12.5 mg BID-W/MEALS LOU Administration Famotidine 20 mg 09/03/21 21:00 09/03/21 21:28 Famotidine 20 Mg Tab PO 20 mg HS LOU Administration Furosemide 40 mg 09/04/21 09:00 Furosemide 40 Mg Tab PO DAILY LOU Sodium Chloride 1,000 mls @ 130 mls/hr 09/03/21 09:00 09/04/21 00:34 Saline 0.9% IV Not Given .[id number] [facility] Vancomycin HCl 1,500 mg/ 250 mls @ 125 mls/hr 09/04/21 06:15 Sodium Chloride IVPB 09/04/21 08:14 ONCE ONE Losartan Potassium 100 mg 09/04/21 09:00 Losartan 50 Mg Tab PO DAILY [facility] Meclizine HCl 12.5 mg 09/03/21 15:39 Meclizine 12.5 Mg Tab PO BID PRN Dizziness Miscellaneous Information 1 each 09/04/21 06:04 Vancomycin Iv Per Pharmacy 1 Each Misc MISCELLANE DIRECTED PRN Per Protocol Protocol Naloxone HCl 0.2 mg 09/03/21 13:21 Naloxone 0.4 Mg/Ml 1 Ml Vial IV Q2M PRN Opioid Reversal Rivaroxaban 20 mg 09/03/21 17:00 09/03/21 17:55 Rivaroxaban 20 Mg Tab PO 20 mg W/SUPPER@1700 [facility] Administration Protocol Intake and Output 09/03/21 09/04/21 09/04/21 22:59 06:59 14:59 Output Total 400 Balance -400 Output: Urine 400 Other: Voiding Method External Catheter # Voids 1 Weight 78.471 kg 09/03/21 08:52 09/03/21 08:52
[2021-09-04] MEDS: RIVAROXABAN 20 MG TAB PO SCH (17:07)
--- NOTE | 2021-09-04 18:34 | P.PN ---
Subjective Progress Note Date: 09/04/21 Hospital course: Patient is a very pleasant 81-year-old male with a past medical history of atrial fibrillation on anticoagulation with Xarelto, hypertension, and hyperlipidemia. She presented to the emergency department with a chief complaint of overall fatigue and weakness. While in the emergency department patient reports she began to feel some intermittent substernal chest pain. She underwent full evaluation. Patient found to have leukocytosis with WBC count of 11.6 on, anemia with hemoglobin of 10.0. Urinalysis negative for blood or infection. Covid PCR, influenza A and influenza B PCR is negative. Troponin negative at less than 0.0123 draws. EKG was completed showing sinus rhythm at 69 bpm with T-wave inversion in leads V2 through V6. Chest x-ray revealing sl ightly congested pulmonary vasculature otherwise negative for acute cardiopulmonary process. Physical exam: Vital signs reviewed and stable. General: Nontoxic, no distress and appears stated age. Derm: Skin warm and dry, normal coloration for ethnicity. Head: Atraumatic, normocephalic and symmetric. Eyes: EOMs intact, no lid lag, and anicteric sclera Mouth: no lip lesions, mucus membranes moist Cardiovascular: regular rate and rhythm with normal S1S2, no murmur, positive posterior tibial pulses bilaterally, and cap refill < 2 seconds. Lungs: Respirations even, regular, and unlabored on room air. Lungs CTA bilaterally, no rhonchi, no rales, no wheezing, and no accessory muscle usage. Abdominal: soft, nontender to palpation, no guarding, no appreciable organomegaly Ext: ROM intact. No gross muscle atrophy, no edema, no contractures Neuro: Speech clear, face symmetrical and CN II-XII grossly intact with no noted focal neuro deficits Psych: Alert and oriented to person, place, time, and situation. Appropriate and pleasant affect. Assessment and Plan of Care: Chest pain, rule out acute coronary event -Cardiology consult, appreciate further recommendations -Telemetry monitoring -Trend troponins -Cardiac diet, NPO at midnight -Aspirin, atorvastatin, and metoprolol -Lipid profile with a.m. labs. Bacteremia -Continue vancomycin pending final culture and sensitivity report. -Consult infectious disease. -Blood cultures 1 of 2 preliminary results positive for staph, possibly contaminant awaiting final culture and sensitivity results. Hypertension -Monitor vital signs and continue daily medication regimen with amlodipine and losartan. Hyperlipidemia -Continue daily medication regimen with atorvastatin. CODE STATUS:DO NOT RESUSCITATE/DO NOT INTUBATE DVT prophylaxis: Xarelto Discussed with: Patient and RN Anticipated discharge date: Clinical course to determine Anticipated discharge place Home A total of 36 minutes was spent on the care of this complex patient more than 50% of the time was spent in counseling and care coordination. Objective - Vital Signs Vital signs: Vital Signs Temp 98.8 F 09/04/21 07:00 Pulse 64 09/04/21 07:00 Resp 18 09/04/21 07:00 BP 144/70 09/04/21 07:00 Pulse Ox 92 L 09/04/21 07:00 Intake & Output 09/03/21 09/04/21 09/04/21 18:59 06:59 18:59 Output Total 400 Balance -400 Weight 78.471 kg 78.471 kg Output: Urine 400 Other: Voiding Method External Catheter # Voids 1 - Labs CBC & Chem 7: 09/04/21 05:43 09/04/21 05:43 Labs: Abnormal Lab Results - Last 24 Hours (Table) 09/03/21 09/03/21 09/03/21 Range/Units 08:52 08:52 08:52 PT 12.3 H (9.0-12.0) sec INR 1.2 H (<1.2) APTT 31.5 H (22.0-30.0) sec Carbon Dioxide 21 L (22-30) mmol/L BUN 22 H (7-17) mg/dL Glucose 144 H (74-99) mg/dL Plasma Lactic Acid Miller 2.2 H* (0.7-2.0) mmol/L Urine Blood (Negative) Hyaline Casts (0-2) /lpf Urine Mucus (None) /hpf 09/03/21 Range/Units 11:19 PT (9.0-12.0) sec INR (<1.2) APTT (22.0-30.0) sec Carbon Dioxide (22-30) mmol/L BUN (7-17) mg/dL Glucose (74-99) mg/dL Plasma Lactic Acid Miller (0.7-2.0) mmol/L Urine Blood Small H (Negative) Hyaline Casts 4 H (0-2) /lpf Urine Mucus Rare H (None) /hpf Microbiology - Last 24 Hours (Table) 09/03/21 10:31 Blood Culture - Final Blood
[2021-09-04] MEDS: ATORVASTATIN 40 MG TAB PO SCH (20:08)
[2021-09-04] MEDS: FAMOTIDINE 20 MG TAB PO SCH (20:08)
[2021-09-05] MEDS: SODIUM CHLORIDE 0.9% 1,000 ML IV SCH ×2 (01:08→07:52)
[2021-09-05] MEDS ORDERED: VANCOMYCIN 1,500 MG in SODIUM CHLORIDE 0.9% 250 ML IVPB SCH (06:00)
[2021-09-05 07:12] LABS: ALT 12 U/L (4-34); AST 16 U/L (14-36); African American GFR (CKD) 86 (>60 ml/min/1.73 sqM); Alkaline Phosphatase 51 U/L (38-126); Anion Gap 5 mmol/L; Blood Urea Nitrogen 20 mg/dL (7-17); Carbon Dioxide 22 mmol/L (22-30); Chloride 113 mmol/L (98-107); Globulin 2.9 g/dL; Glucose 111 mg/dL (74-99); Non-African American GFR(CKD) 74 (>60 ml/min/1.73 sqM); Potassium 3.7 mmol/L (3.5-5.1); Sodium 140 mmol/L (137-145); Total Bilirubin 0.7 mg/dL (0.2-1.3); Total Protein 5.9 g/dL (6.3-8.2)
[2021-09-05 07:13] VITALS: TEMP 98.3
[2021-09-05] MEDS: carvediloL 12.5 MG TAB PO SCH (07:53)
[2021-09-05] MEDS: LOSARTAN 50 MG TAB PO SCH (07:53)
[2021-09-05] MEDS: FUROSEMIDE 40 MG TAB PO SCH (07:54)
[2021-09-05] MEDS: amLODIPine 10 MG TAB PO SCH (07:54)
[2021-09-05 08:59] VITALS: RESP 18
[2021-09-05 09:12] LABS: HCT 31.3 % (37.2-46.3); HGB 9.3 g/dL (12.0-15.0); MCH 29.8 pg (27.0-32.0); MCHC 29.7 g/dL (32.0-37.0); MCV 100.3 fL (80.0-97.0); Mean Platelet Volume 10.8 fL (9.5-12.2); NRBC Per 100 WBC 0 /100 WBCS (0.0-0.0); Platelet Count 141 X 10*3/uL (140-440); RBC 3.12 X 10*6/uL (4.10-5.20); RDW 14.3 % (11.5-14.5); WBC 8.06 X 10*3/uL (4.50-10.00)
[2021-09-05] MEDS ORDERED: LEVOFLOXACIN 500 MG TAB PO SCH (13:00)
[2021-09-05 14:56] VITALS: BP 128/53; PULSE 66
--- NOTE | 2021-09-05 14:58 | P.DS ---
Providers Date of admission: 09/04/21 18:24 Attending physician: Eva Morin DO Consults: 09/03/21 15:14 Consult Physician Urgent Consulting Provider: Oneal Olsen Consult Reason/Comments: cp Do you want consulting provider notified?: Yes 09/04/21 18:25 Consult Physician Routine Consulting Provider: Jerry Kent Consult Reason/Comments: bacteremia Do you want consulting provider notified?: Yes Primary care physician: [facility] [place] Course: Hospital course: Patient is a very pleasant 81-year-old male with a past medical history of atrial fibrillation on anticoagulation with Xarelto, hypertension, and hyperlipidemia. She presented to the emergency department with a chief complaint of overall fatigue and weakness. While in the emergency department patient reports she began to feel some intermittent substernal chest pain. She underwent full evaluation. Patient found to have leukocytosis with WBC count of 11.6 on, anemia with hemoglobin of 10.0. Urinalysis negative for blood or infection. Covid PCR, influenza A and influenza B PCR is negative. Troponin negative at less than 0.0123 draws. EKG was completed showing sinus rhythm at 69 bpm with T-wave inversion in leads V2 through V6. Chest x-ray revealing slightly congested pulmonary vasculature otherwise negative for acute cardiopulmonary process. Physical exam: Vital signs reviewed and stable. General: Nontoxic, no distress and appears stated age. Derm: Skin warm and dry, normal coloration for ethnicity. Head: Atraumatic, normocephalic and symmetric. Eyes: EOMs intact, no lid lag, and anicteric sclera Mouth: no lip lesions, mucus membranes moist Cardiovascular: regular rate and rhythm with normal S1S2, no murmur, positive posterior tibial pulses bilaterally, and cap refill < 2 seconds. Lungs: Respirations even, regular, and unlabored on room air. Lungs CTA bilaterally, no rhonchi, no rales, no wheezing, and no accessory muscle usage. Abdominal: soft, nontender to palpation, no guarding, no appreciable organomegaly Ext: ROM intact. No gross muscle atrophy, no edema, no contractures Neuro: Speech clear, face symmetrical and CN II-XII grossly intact with no noted focal neuro deficits Psych: Alert and oriented to person, place, time, and situation. Appropriate and pleasant affect. Hospital course detailed problem list: Atypical chest pain -Per cardiology noncardiac etiology. -Acute coronary syndrome has been ruled out -Trend troponins -Cardiology cleared patient for discharge -Aspirin, atorvastatin, and metoprolol -Lipid profile with a.m. labs. Staph epidermidis bacteremia -Most likely contaminant -ID cleared the patient for discharge -Blood cultures 1 of 2 preliminary results positive for staph, possibly contaminant awaiting final culture and sensitivity results. Fever and cough -Chest x-ray negative for pneumonia -ID recommended by mouth Levaquin 500 milligrams daily 5 days Hypertension -Monitor vital signs and continue daily medication regimen with amlodipine and losartan. Hyperlipidemia -Continue daily medication regimen with atorvastatin. Paroxysmal A. 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 -Patient Xarelto History of stroke with left hemiplegia Patient Condition at Discharge: Stable Plan - Discharge Summary New Discharge Prescriptions: New Levofloxacin [Levaquin] 500 mg PO Q24H #5 tab Continue polyethylene glycoL 3350 [Miralax] 17 gm PO DAILY PRN PRN Reason: Constipation Ketoconazole 2% Shampoo [Nizoral] 1 applic TOPICAL DAILY PRN PRN Reason: ON SHOWER DAYS, FOR SCALP Oxybutynin Chloride 5 mg PO HS Multivitamins, Thera [Multivitamin (formulary)] 1 tab PO DAILY Losartan Potassium [Cozaar] 100 mg PO DAILY Carvedilol [Coreg] 12.5 mg PO BID amLODIPine [Norvasc] 10 mg PO DAILY Atorvastatin [Lipitor] 40 mg PO HS Menthol [Biofreeze] 1 applic TOPICAL TID PRN PRN Reason: Pain Phenyleph/Mineral Oil/Petrolat [Preparation H Ointment] 1 applic RECTAL QID PRN PRN Reason: Hemorrhoids Sennosides/Docusate Sodium [Senna Plus 8.6-50 mg Tablet] 2 tab PO HS Potassium Chloride ER [K-Dur 10] 10 meq PO TID@0600,1200,1700 Calcium Citrate/Vitamin D3 [Citracal + D Maximum Caplet] 1 tab PO DAILY Salonpas 4% Patch 1 patch TRANSDERM BID Loperamide [Imodium] 2 - 4 mg PO QID PRN MDD 16mg PRN Reason: Diarrhea Furosemide [Lasix] 40 mg PO DAILY Acetaminophen [Tylenol 8 Hour] 650 mg PO DAILY Rivaroxaban [Xarelto] 20 mg PO W/SUPPER@1700 Ondansetron [Zofran] 4 mg PO Q8H PRN PRN Reason: Nausea And Vomiting Meclizine [Antivert] 12.5 mg PO BID PRN PRN Reason: Dizziness Cholecalciferol [Vitamin D3 (25 Mcg = 1000 Iu)] 50 mcg PO HS Discontinued Menthol [Biofreeze] 1 applic TOPICAL HS Acetaminophen [Tylenol Extra Strength] 1,000 mg PO Q4-6H PRN MDD 4000mg PRN Reason: Fever And/ Or Pain Acetaminophen [Tylenol Extra Strength] 1,000 mg PO HS Discharge Medication List Acetaminophen [Tylenol 8 Hour] 650 mg PO DAILY 06/05/21 [History] Atorvastatin [Lipitor] 40 mg PO HS 06/05/21 [History] Carvedilol [Coreg] 12.5 mg PO BID 06/05/21 [History] Furosemide [Lasix] 40 mg PO DAILY 06/05/21 [History] Ketoconazole 2% Shampoo [Nizoral] 1 applic TOPICAL DAILY PRN 06/05/21 [History] Loperamide [Imodium] 2 - 4 mg PO QID PRN MDD 16mg 06/05/21 [History] Losartan Potassium [Cozaar] 100 mg PO DAILY 06/05/21 [History] Menthol [Biofreeze] 1 applic TOPICAL TID PRN 06/05/21 [History] Multivitamins, Thera [Multivitamin (formulary)] 1 tab PO DAILY 06/05/21 [History] Oxybutynin Chloride 5 mg PO HS 06/05/21 [History] Phenyleph/Mineral Oil/Petrolat [Preparation H Ointment] 1 applic RECTAL QID PRN 06/05/21 [History] amLODIPine [Norvasc] 10 mg PO DAILY 06/05/21 [History] polyethylene glycoL 3350 [Miralax] 17 gm PO DAILY PRN 06/05/21 [History] Calcium Citrate/Vitamin D3 [Citracal + D Maximum Caplet] 1 tab PO DAILY 09/03/21 [History] Cholecalciferol [Vitamin D3 (25 Mcg = 1000 Iu)] 50 mcg PO HS 09/03/21 [History] Meclizine [Antivert] 12.5 mg PO BID PRN 09/03/21 [History] Ondansetron [Zofran] 4 mg PO Q8H PRN 09/03/21 [History] Potassium Chloride ER [K-Dur 10] 10 meq PO TID@0600,1200,1700 09/03/21 [History] Rivaroxaban [Xarelto] 20 mg PO W/SUPPER@1700 09/03/21 [History] Salonpas 4% Patch 1 patch TRANSDERM BID 09/03/21 [History] Sennosides/Docusate Sodium [Senna Plus 8.6-50 mg Tablet] 2 tab PO HS 09/03/21 [History] Levofloxacin [Levaquin] 500 mg PO Q24H #5 tab 09/05/21 [Rx] Follow up Appointment(s)/Referral(s): Rudy Rodríguez DO [STAFF PHYSICIAN] - 2 Weeks Francisco Lawrence MD [Primary Care Provider] - 1-2 days Discharge Disposition: HOME WITH HOME HEALTH SERVICES
== END 2021-09-05 15:33 | disposition home health service (06) | DRG 313 ==
LOC: EC 08:30 → 6NMEDSUR 13:21 → OBSVTOIN 09-04 18:24
PROVIDERS: ADMIT Internal Medicine; ATTEND Internal Medicine
DX: R07.89 Other chest pain (principal); E87.2 Acidosis; I69.354 Hemiplegia and hemiparesis following cerebral infarction affecting left non-dominant side; R78.81 Bacteremia; D64.9 Anemia, unspecified; D72.829 Elevated white blood cell count, unspecified; E78.5 Hyperlipidemia, unspecified; G89.29 Other chronic pain; I10 Essential (primary) hypertension; I48.0 Paroxysmal atrial fibrillation; Z20.822 Contact with and (suspected) exposure to COVID-19; Z66 Do not resuscitate; Z79.01 Long term (current) use of anticoagulants; Z79.899 Other long term (current) drug therapy; Z87.891 Personal history of nicotine dependence; Z95.0 Presence of cardiac pacemaker
CPT/HCPCS: 36415; 71046; 80053; 81001; 83605; 83880; 84484; 85025; 85027; 85610; 85730; 87040; 87502; 87635; 93005; 99285

== ENCOUNTER 2022-05-18 17:58 | Emergency (ER) | payer OTHER ==
[2022-05-18 18:25] VITALS: RESP 18; TEMP 98.2
--- NOTE | 2022-05-18 18:56 | XR ---
EXAMINATION TYPE: XR chest 2V DATE OF EXAM: 05/18/2022 COMPARISON: 09/03/2021 HISTORY: Chest pain TECHNIQUE: 2 views FINDINGS: Heart is normal. Lungs are clear of infiltrate. No heart failure. There is left axillary pa cemaker. Thoracic aorta is atheromatous. There is degenerative spurring in the thoracic spine. IMPRESSION: No active cardiopulmonary disease. No significant change.
--- NOTE | 2022-05-18 18:59 | ED ---
General Adult HPI - General Chief complaint: Upper Respiratory Infection Stated complaint: RSV Time Seen by Provider: 05/18/22 18:37 Source: patient, RN notes reviewed, old records reviewed Mode of arrival: ambulatory Limitations: no limitations - History of Present Illness Initial comments: Nontoxic appearing 81-year-old female presents to the emergency room with complaints of cough and sore throat. She states that she has been exposed to RSV wants to be tested. Denies any fevers. No nausea vomiting or abdominal pain. She has been vaccinated against coronavirus and influenza. -: days(s) (2) Location: mouth (sore throat) Severity scale (1-10): 0 Quality: other (sore) Associated Symptoms: cough, other (sore throat) - Related Data Home Medications Medication Instructions Recorded Confirmed Acetaminophen [Tylenol 8 Hour] 650 mg PO DAILY 06/05/21 09/03/21 Atorvastatin [Lipitor] 40 mg PO HS 06/05/21 09/03/21 Furosemide [Lasix] 40 mg PO DAILY 06/05/21 09/03/21 Ketoconazole 2% Shampoo [Nizoral] 1 applic TOPICAL DAILY PRN 06/05/21 09/03/21 Loperamide [Imodium] 2 - 4 mg PO QID PRN MDD 16mg 06/05/21 09/03/21 Losartan Potassium [Cozaar] 100 mg PO DAILY 06/05/21 09/03/21 Menthol [Biofreeze] 1 applic TOPICAL TID PRN 06/05/21 09/03/21 Multivitamins, Thera [Multivitamin 1 tab PO DAILY 06/05/21 09/03/21 (formulary)] Oxybutynin Chloride 5 mg PO HS 06/05/21 09/03/21 Phenyleph/Mineral Oil/Petrolat 1 applic RECTAL QID PRN 06/05/21 09/03/21 [Preparation H Ointment] amLODIPine [Norvasc] 10 mg PO DAILY 06/05/21 09/03/21 carvediloL [Coreg] 12.5 mg PO BID 06/05/21 09/03/21 polyethylene glycoL 3350 [Miralax] 17 gm PO DAILY PRN 06/05/21 09/03/21 Calcium Citrate/Vitamin D3 1 tab PO DAILY 09/03/21 09/03/21 [Citracal + D Maximum Caplet] Cholecalciferol [Vitamin D3 (25 50 mcg PO HS 09/03/21 09/03/21 Mcg = 1000 Iu)] Meclizine [Antivert] 12.5 mg PO BID PRN 09/03/21 09/03/21 Ondansetron [Zofran] 4 mg PO Q8H PRN 09/03/21 09/03/21 Potassium Chloride ER [K-Dur 10] 10 meq PO TID@0600,1200,1700 09/03/21 09/03/21 Rivaroxaban [Xarelto] 20 mg PO W/SUPPER@1700 09/03/21 09/03/21 Salonpas 4% Patch 1 patch TRANSDERM BID 09/03/21 09/03/21 Sennosides/Docusate Sodium [Senna 2 tab PO HS 09/03/21 09/03/21 Plus 8.6-50 mg Tablet] Previous Rx's Medication Instructions Recorded Levofloxacin [Levaquin] 500 mg PO Q24H #5 tab 09/05/21 Allergies Allergy/AdvReac Type Severity Reaction Status Date / Time asparagus Allergy Unknown Verified 05/18/22 18:25 Review of Systems ROS Statement: Those systems with pertinent positive or pertinent negative responses have been documented in the HPI. ROS Other: All systems not noted in ROS Statement are negative. Past Medical History Past Medical History: Atrial Fibrillation, Hyperlipidemia, Hypertension History of Any Multi-Drug Resistant Organisms: None Reported Past Surgical History: Orthopedic Surgery, Pacemaker Additional Past Surgical History / Comment(s): orthopedic surgery on Right ankle and left wrist Past Anesthesia/Blood Transfusion Reactions: No Reported Reaction Type of Cardiac Device: Unknown Device Placement Date:: 2001 Past Psychological History: No Psychological Hx Reported Smoking Status: Former smoker Past Alcohol Use History: None Reported Past Drug Use History: None Reported General Exam Limitations: no limitations General appearance: alert, in no apparent distress Head exam: Present: atraumatic Eye exam: Absent: scleral icterus, conjunctival injection, periorbital swelling ENT exam: Present: normal oropharynx, mucous membranes moist Expanded Mouth exam: Present: tongue normal, tongue elevation. Absent: drooling, trismus, muffled voice Throat exam: negative: tonsillar erythema, tonsillomegaly, tonsillar exudate, R peritonsillar mass, L peritonsillar mass Neck exam: Absent: tenderness, meningismus, lymphadenopathy Respiratory exam: Present: normal lung sounds bilaterally. Absent: respiratory distress, accessory muscle use Cardiovascular Exam: Present: regular rate GI/Abdominal exam: Present: soft. Absent: distended Extremities exam: Present: normal capillary refill Neurological exam: Present: alert, oriented X3 Psychiatric exam: Present: normal affect, normal mood Skin exam: Present: warm, dry, normal color. Absent: cyanosis, diaphoretic, pallor, mottled Course Vital Signs 05/18/22 05/18/22 18:22 20:32 Temperature 98.2 F 98.2 F Pulse Rate 63 65 Respiratory 18 18 Rate Blood Pressure 126/66 128/78 O2 Sat by Pulse 95 98 Oximetry Medical Decision Making - Medical Decision Making X-ray interpreted by me shows no evidence of consolidation. Pacemaker left chest. No evidence of free air. Radiologist interpretation no active cardiopulmonary disease. No significant change. Lungs sounds are clear to auscultation. RSV, virus and influenza swab negative. She will be discharged home with an upper respiratory infection. No acute distress. Vital signs are stable. Directed to follow up with her primary care doctor next week and return to the emergency room with any new or concerning symptoms. - Lab Data Lab Results 05/18/22 Range/Units 18:31 Influenza Type A (PCR) Not Detected (Not Detectd) Influenza Type B (PCR) Not Detected (Not Detectd) RSV (PCR) Not Detected (Not Detectd) SARS-CoV-2 (PCR) Not Detected (Not Detectd) Disposition Clinical Impression: Upper respiratory infection Disposition: HOME SELF-CARE Condition: Good Instructions (If sedation given, give patient instructions): Upper Respiratory Infection (ED) Additional Instructions: Tylenol and Motrin for pain or sore throat. Follow-up with primary care doctor. Return to the emergency room with any new or concerning symptoms. Is patient prescribed a controlled substance at d/c from ED?: No Referrals: Francisco Lawrence MD [Primary Care Provider] - 1-2 days Time of Disposition: 19:50
[2022-05-18 20:33] VITALS: BP 128/78; PULSE 65
== END 2022-05-18 20:32 | disposition home or self-care (01) ==
LOC: EC 17:58
DX: J06.9 Acute upper respiratory infection, unspecified (principal); I48.91 Unspecified atrial fibrillation; E78.5 Hyperlipidemia, unspecified; I10 Essential (primary) hypertension; Z87.891 Personal history of nicotine dependence; Z91.048 Other nonmedicinal substance allergy status; Z79.899 Other long term (current) drug therapy; Z20.822 Contact with and (suspected) exposure to COVID-19
CPT/HCPCS: 71046; 87636; 99284

== ENCOUNTER → 2023-03-04 | Outpatient (CLI) | payer OTHER ==
--- NOTE | 2023-03-04 13:02 | BD ---
EXAMINATION TYPE: Axial Bone Density DATE OF EXAM: 03/04/2023 CLINICAL HISTORY: 82 years old Female. ICD-10 CODE: Z13.820 ENCOUNTER FOR SCREENING FOR OSTEOPOROSIS Height: 56" Weight: 193.2 FRAX RISK QUESTIONS: Alcohol (3 or more units per day): No Family History (Parent hip fracture): No Glucocorticoids (More than 3mos): No (Ex: prednisone, prednisolone, methylprednisolone, dexamethasone, and hydrocortisone). History of Fracture in Adulthood: Yes Secondary Osteoporosis: 1. Type 1 Diabetes: No 2. Hyperthyroidism: No 3. Menopause before 45: No 4. Malnutrition: No 5. Chronic liver disease: No Rheumatoid Arthritis: No Current Tobacco Use: No RISK FACTORS HISTORY OF: Hip Fracture (Right/Left): No Spine Fracture: No History of Wrist Fracture: No Surgery to Spine/Hip(right/left)/Wrist (right/left): Left wrist (possibly) Family History of Osteoporosis: Yes, Mother Active: No Diet low in dairy products/other sources of calcium: Yes Postmenopausal woman: Yes Lost more than 2 inches in height since high school: Yes Frequent falls: No Poor Health: Mediocre Hyperparathyroidism: No Adrenal Insufficiency: No MEDICATIONS: Prednisone or other steroids: No Thyroid Medications: No Osteoporosis Medications: No Additional Medications: Blood pressure and heart meds, acetaminophen, Calcium, Vitamin D, ear drops, multivitamin, nystatin, potassium chloride, Additional History: None EXAM MEASUREMENTS: Bone mineral densitometry was performed using the [employer] System. Bone mineral density as measured about the Lumbar spine is: ----- L1-L4(G/cm2): 1.032 T Score Values are as follows: ----- L1: 0.8 ----- L2: -2.1 ----- L3: -0.6 ----- L4: -2.5 ----- L1-L4: -1.2 Z Score Values are as follows: ----- L1: 2.0 ----- L2: -1.0 ----- L3: 0.5 ----- L4: -1.4 ----- L1-L4: -0.1 Baseline @MPH Bone mineral density about the R hip (g/cm2): 0.761 Bone mineral density about the L hip (g/cm2): 0.747 T Score values are as follows: -----R Neck: -3.6 -----L Neck: -2.6 -----R Total: -2.0 -----L Total: -2.1 Z Score values are as follows: -----R Neck: -1.8 -----L Neck: -0.8 -----R Total: -0.3 -----L Total: -0.5 Baseline @MPH FRAX%s: The graph provided illustrates a 27.0 % chance for a major osteoporotic fx and a 12.2% chance for the hips probability for fx in 10 years time. IMPRESSION: Osteoporosis (T Score less than -2.5). There is increased fracture risk and therapy is usually indicated based on age. Re-Screen 1-2 years. NOTE: T-SCORE=SD OF THE YOUNG ADULT MEAN.
== END | disposition home or self-care (01) ==
LOC: RADBDWWP 11:05 → EEVIPCON 11:20
PROVIDERS: ATTEND Emergency Medicine
DX: M85.89 Other specified disorders of bone density and structure, multiple sites (principal); M81.0 Age-related osteoporosis without current pathological fracture
CPT/HCPCS: 77080

== ENCOUNTER 2023-11-04 10:34 | Day surgery (SDC) | payer OTHER ==
[2023-10-28 14:36] VITALS: BMI 44.0
[2023-11-04 12:02] VITALS: TEMP 97.6
[2023-11-04] MEDS: LACTATED RINGERS 1,000 ML IV SCH (12:16)
[2023-11-04] MEDS: IV FLUID CONTINUATION 1,000 ML IV ONE (12:16)
[2023-11-04] MEDS ORDERED: PROPOFOL 10 MG/ML 20 ML VIAL IV ONE (12:31)
--- NOTE | 2023-11-04 12:59 | P.PCN ---
Date of Procedure: 11/04/23 Procedure(s) Performed: BRIEF HISTORY: Patient is a 83-year-old pleasant white female scheduled for an elective colonoscopy as a part of evaluation of anemia with a hemoglobin of 7 g/dL. She was hospitalized at [facility] 3 weeks ago. She was on Xarelto but has not been on hold since then. She has no GI symptoms. PROCEDURE PERFORMED: Colonoscopy. PREOPERATIVE DIAGNOSIS: Symptomatic anemia. IV sedation per Anesthesia. PROCEDURE: After informed consent was obtained, the patient, was brought into the endoscopy unit. IV sedation was administered by Anesthesia under continuous monitoring. Digital rectal examination was normal. Initially the Olympus CF-160 flexible video colonoscope was then inserted in the rectum, gradually advanced into the cecum with due to severe difficulty. Careful examination was performed as the scope was gradually being withdrawn. Ileocecal valve and the appendiceal orifice were visualized and appeared normal. Prep was excellent. Mucosa of the cecum, ascending colon, transverse colon, descending colon, sigmoid colon, and rectum appeared normal. Sigmoid diverticulosis. Retroflexion was performed in the rectum and no lesions were seen. The patient tolerated the procedure well. IMPRESSION: Normal-appearing colon from rectum to cecum with no evidence of colorectal neoplasia. Sigmoid diverticulosis. RECOMMENDATIONS: Findings of this examination were discussed with the patient as well as her family. She was advised to follow-up with her PCP. Continue with high-fiber diet..
[2023-11-04 13:10] VITALS: RESP 16
[2023-11-04 13:47] VITALS: BP 126/78; PULSE 78
== END 2023-11-04 14:02 | disposition home or self-care (01) ==
LOC: ORWHC2ENDO 10:34 → EEVIPCON 13:30 → ORWHC2ENDO 14:02
PROVIDERS: ATTEND Internal Medicine Gastroenterology
DX: K57.30 Diverticulosis of large intestine without perforation or abscess without bleeding (principal); D64.9 Anemia, unspecified; I10 Essential (primary) hypertension; E78.5 Hyperlipidemia, unspecified; I48.91 Unspecified atrial fibrillation; K21.9 Gastro-esophageal reflux disease without esophagitis; Z79.899 Other long term (current) drug therapy; Z88.6 Allergy status to analgesic agent; Z91.018 Allergy to other foods
CPT/HCPCS: 45378; J2704